=== PATIENT | male | born 1950 | race Caucasian/White ===

== ENCOUNTER → 2024-05-23 | Outpatient (CLI) | payer OTHER, SELFPAY ==
[2024-05-23 15:29] LABS: Basophils # (Auto) 0.1 Thou/mm3 (0.0-0.2); Basophils % (Auto) 1 % (0-2.5); Eosinophils # (Auto) 0.3 Thou/mm3 (0.0-0.5); Eosinophils % (Auto) 2 % (0-10); Hematocrit 47.1 % (41.0-53.0); Hemoglobin 15.7 g/dL (13.5-16.0); Immature Granulocytes % (Auto) 1 % (0-0); Immature Granulocytes Auto 0.07 Thou/mm3 (0.00-0.00); Lymphocytes # (Auto) 3.1 Thou/mm3 (1.0-4.8); Lymphocytes % (Auto) 24 % (10-50); Mean Corpuscular HGB Conc 33.3 g/dl (31.0-37.0); Mean Corpuscular Hemoglobin 30.3 pg (25.0-35.0); Mean Corpuscular Volume 91 fL (80-100); Monocytes # (Auto) 0.5 Thou/mm3 (0.0-0.8); Monocytes % (Auto) 4 % (0-12); Neutrophils # (Auto) 9.2 Thou/mm3 (1.8-7.7); Neutrophils % (Auto) 69 % (37-80); Nucleated Red Blood Cell % 0 /100 WBC (0); Platelet Count 373 Thou/mm3 (140-440); RDW Standard Deviation 47.8 fL (35.1-43.9); Red Blood Count 5.19 Miln/mm3 (4.50-5.90); White Blood Count 13.2 Thou/mm3 (3.8-10.6)
[2024-05-23 15:48] LABS: Glucose Estimated Average 114 mg/dL (80-131); Hemoglobin A1C 5.6 % Hgb (4.8-6.0)
[2024-05-23 15:54] LABS: Prostate Specific Antigen 2.89 ng/mL (0-4.00)
[2024-05-23 15:58] LABS: Alanine Aminotransferase 36 U/L (10-49); Albumin, Serum 4.5 gm/dL (3.4-4.8); Alkaline Phosphatase 115 U/L (46-116); Anion Gap 10 (7-16); Aspartate Amino Transferase 18 U/L (0-34); BUN/Creatinine Ratio 22 Ratio (12-20); Bilirubin,Total 0.5 mg/dL (0.3-1.2); Blood Urea Nitrogen 42 mg/dL (9-23); Calcium 9.5 mg/dL (8.3-10.6); Calcium (Corrected) 9.5 mg/dL (8.5-10.1); Cardiac Risk Estimate 4.3 RATIO (4.0-6.7); Chloride 102 mMol/L (98-107); Cholesterol 155 mg/dL (132-200); Creatinine (Component) 1.9 mg/dL (0.6-1.3); Globulin 2.3 gm/dL (2.3-3.5); Glucose 118 mg/dL (74-106); HDL Cholesterol 36 mg/dL (40-60); LDL Cholesterol,Calculated 79 mg/dL (0-130); Osmolality,Calculated 290 (275-295); Potassium 4.1 mMol/L (3.4-5.1); Sodium 140 mMol/L (136-145); Total Protein 6.8 gm/dL (5.7-8.2); Triglycerides 201 mg/dL (30-150); eGFR 37 See Note
== END | disposition home or self-care (01) ==
LOC: COPL 13:56
PROVIDERS: PCP Family Medicine; Referring Provider Family Medicine; Visit Provider Family Medicine
DX: Z00.00 Encounter for general adult medical examination without abnormal findings (principal); E11.65 Type 2 diabetes mellitus with hyperglycemia; E78.00 Pure hypercholesterolemia, unspecified; Z12.5 Encounter for screening for malignant neoplasm of prostate; Z13.1 Encounter for screening for diabetes mellitus
CPT/HCPCS: 36415; 80053; 80061; 81001; 83036; 84153; 85025; 87086

== ENCOUNTER → 2024-05-24 | Outpatient (CLI) | payer MEDICARE, SELFPAY ==
[2024-05-24 09:56] LABS: Collection Type, Urine Clean Catch
[2024-05-24 10:21] LABS: Bilirubin,Urine Negative (Negative); Blood,Urine Negative (Negative); Clarity,Urine Clear (Clear/Hazy); Color,Urine Lt-Yellow (Lt Yel-Yel); Culture Indicated,Urine Not Indicated; Glucose, Urine Negative (Negative); Ketones,Urine Negative (Negative); Leukocyte Esterase,Urine Negative (Negative); Nitrite,Urine Negative (Negative); Protein,Urine Trace (Neg - Trace); RBC,Urine 9 /hpf (0-3); Specific Gravity,Urine 1.023 (1.001-1.035); Squamous Epithelial Cell,Urine < 1 /hpf (0-5); Urobilinogen,Urine Negative mg/dL (0.0-1.0); WBC,Urine < 1 /hpf (0-5)
== END | disposition home or self-care (01) ==
LOC: SLDO 09:41
PROVIDERS: PCP Family Medicine; Referring Provider Family Medicine; Visit Provider Family Medicine
DX: Z00.00 Encounter for general adult medical examination without abnormal findings (principal); E11.65 Type 2 diabetes mellitus with hyperglycemia; E78.00 Pure hypercholesterolemia, unspecified; Z13.1 Encounter for screening for diabetes mellitus
CPT/HCPCS: 81001

== ENCOUNTER 2024-08-24 13:00 | Outpatient (RCR) | payer MEDICARE, SELFPAY ==
--- NOTE | 2024-08-17 13:10 | PTNOTE_ITS ---
PT OP Initial Eval Patient Information Outpatient Physical Therapy Treatment Date: 08/17/24 Visit Reasons: Post op left hip Medical Diagnosis: M16.12 Z51.89 Treatment Dx #1: L hip pain Treatment Dx #2: L hip weakness Start of Care: 08/17/24 Date of Onset: 07/18/24 Smoking Status Smoking Status: Light (< 1 pack/day) Cessation Counseling Provided: ADA was advised that quitting smoking is the single most important factor to protect the health of themselves and their family. Discussed the benefits of quitting smoking with patient. Encouraged patient to quit smoking and provided Cessation assistance materials and resources. Tobacco Use: Cigarette Years smoked: 30 Are you interested in quitting?: Yes Would you like additional Smoking Cessation Counseling?: No Initial Assessment Subjective: Pt is 73 yr old male s/p L hip replacement presents ambulating without assistive device. He says lifting the LE to the side is most difficult and ambulating more than about 10 mins is limited. PMH: cardiac stent, high cholesterol, HTN, 4 herniated disks in neck and lumbar OA Pt goal: walk further to play golf Objective: L hip ArOM: Strength: Flexion: 85 deg 3-/5 Abd: 35 deg with knee bent 3-/5 SLR: 55 deg Gait: unsymmetrical, antalgic Assessment: Pt presentation consistent with referring Dx of L VALE. Pt requires skilled therapy to meet goals and has good rehab potential. Eval followed by HEP printout. Short Term and Interventional Technologist Goals 1. Ind with HEP 2. Improved ambulatory distance to community distances with symmetrical pattern 3. Pt will get up from a chair without L hip pain x10 4. Pt will tolerate playing golf x9 holes with <=3/10 L hip pain 5. Improved hip abduction and flexion strength to 4/5 Treatment Plan ?1. Manual therapy ? 2. Therex ? 3. Modalities as indicated, moist heat, ice, estim Frequency and Duration: 2x a week for 12 sessions plus the eval Certification Dates: 08/17/24 to 11/15/24 Procedure Charges OP PT Eval Mod Complex 30 minutes: Yes
--- NOTE | 2024-08-18 14:22 | PT.ODAYNRPT ---
PT Outpatient Daily Note OP Daily Note Outpatient Physical Therapy Treatment Date: 08/18/24 Visit Reasons: Post op left hip Subjective: Same as time of evaluation Objective: See F/S for therex Assessment: Pt fatigues after a few minutes of therex in standing and sits to rest. Plan: Continue per POC Length of Time (minutes) of Treatment: 30 Minutes Procedure Charges Therapeutic Exercise 30 minutes: Yes
--- NOTE | 2024-08-24 13:35 | PTNOTE_ITS ---
PT Outpatient Daily Note OP Daily Note Outpatient Physical Therapy Treatment Date: 08/24/24 Visit Reasons: Post op left hip Subjective: No new complaints or concerns. Objective: Please see flow sheet for ther ex list. Assessment: Pt demonstrates lateral trunk flexion during standing hip abduction exercise, corrects post verbal cues and demonstration to maintain trunk upright. Plan: Continue with pOC. Length of Time (minutes) of Treatment: 30 Minutes INSTRUMENT AND CONTROL TECHNICIAN Service Modifier Method I: Divide the number of min of care provided by the INSTRUMENT AND CONTROL TECHNICIAN/MYKE by the total min of care provided then multiply by 100. If greater than 11 percent modifier is required. Method II: Divide the total time of care provided to patient by 10 (round to the nearest whole number) and add 1 min. to set the minimum time requirement. If treatment total was 60 min., then 10% of 6 min PT CQ modifier applied: CQ Modifier applied Procedure Charges Therapeutic Exercise 30 minutes: Yes
== END 2024-08-24 23:59 | disposition home or self-care (01) ==
LOC: CPTX 13:00
DX: M25.552 Pain in left hip (principal); R53.1 Weakness; M16.12 Unilateral primary osteoarthritis, left hip; Z96.642 Presence of left artificial hip joint; Z71.6 Tobacco abuse counseling; F17.210 Nicotine dependence, cigarettes, uncomplicated; I10 Essential (primary) hypertension
CPT/HCPCS: 97110; 97162

== ENCOUNTER 2024-09-22 11:00 | Outpatient (RCR) | payer MEDICARE, SELFPAY ==
--- NOTE | 2024-09-01 11:59 | PT.ODAYNRPT ---
PT Outpatient Daily Note OP Daily Note Outpatient Physical Therapy Treatment Date: 09/01/24 Visit Reasons: left hip surgery Subjective: Overall better Objective: See F/S for therex Assessment: Improved endurance with therex but pain in the back today with hip abduction therex Plan: Continue per POC Length of Time (minutes) of Treatment: 30 Minutes Procedure Charges Therapeutic Exercise 30 minutes: Yes
--- NOTE | 2024-09-06 13:12 | PTNOTE_ITS ---
PT Outpatient Daily Note OP Daily Note Outpatient Physical Therapy Treatment Date: 09/06/24 Visit Reasons: left hip surgery Subjective: Pt reports soreness says he has been busy completing tasks around the house. Objective: Please see flow sheet for ther ex list. Assessment: Interventions completed with muscle fatigue no pain to report. Plan: Continue with POC. Length of Time (minutes) of Treatment: 30 Minutes SOFTWARE LICENSING ANALYST Service Modifier Method I: Divide the number of min of care provided by the SOFTWARE LICENSING ANALYST/CONTINUOUS TOWEL ROLLER by the total min of care provided then multiply by 100. If greater than 11 percent modifier is required. Method II: Divide the total time of care provided to patient by 10 (round to the nearest whole number) and add 1 min. to set the minimum time requirement. If treatment total was 60 min., then 10% of 6 min PT CQ modifier applied: CQ Modifier applied Procedure Charges Therapeutic Exercise 30 minutes: Yes
--- NOTE | 2024-09-08 13:20 | PT.ODAYNRPT ---
PT Outpatient Daily Note OP Daily Note Outpatient Physical Therapy Treatment Date: 09/08/24 Visit Reasons: left hip surgery Subjective: Pt reports hip is really sore today. Objective: Please see flow sheet for ther ex list. Assessment: Regressed interventions to accommodate for reported pain. Plan: Continue with POC. Length of Time (minutes) of Treatment: 30 Minutes Procedure Charges Therapeutic Exercise 30 minutes: Yes
--- NOTE | 2024-09-14 13:38 | PTNOTE_ITS ---
PT Outpatient Daily Note OP Daily Note Outpatient Physical Therapy Treatment Date: 09/14/24 Visit Reasons: left hip surgery Subjective: Pt reports hip is painful and sore today. Objective: Please see flow sheet for ther ex list. Assessment: Pt presents in clinic with c/o increase pain, regressed interventions to accommodate pain. Plan: Continue with pOC. Length of Time (minutes) of Treatment: 30 Minutes WINDOWS APPLICATION PACKAGER Service Modifier Method I: Divide the number of min of care provided by the WINDOWS APPLICATION PACKAGER/TERMINAL OPERATIONS MANAGER by the total min of care provided then multiply by 100. If greater than 11 percent modifier is required. Method II: Divide the total time of care provided to patient by 10 (round to the nearest whole number) and add 1 min. to set the minimum time requirement. If treatment total was 60 min., then 10% of 6 min PT CQ modifier applied: CQ Modifier applied Procedure Charges Therapeutic Exercise 30 minutes: Yes
--- NOTE | 2024-09-20 13:07 | PT.ODAYNRPT ---
PT Outpatient Daily Note OP Daily Note Outpatient Physical Therapy Treatment Date: 09/20/24 Visit Reasons: left hip surgery Subjective: Pt reports hip continues ot be pain ful but not as intense. As per pt he walks a few blocks most days. Objective: Please see flow sheet for ther ex list. Assessment: Slow progress with interventions progression due to pt pain response. Plan: Continue with POC. Length of Time (minutes) of Treatment: 30 Minutes Procedure Charges Therapeutic Exercise 30 minutes: Yes
--- NOTE | 2024-09-22 13:08 | PT.ODAYNRPT ---
PT Outpatient Daily Note OP Daily Note Outpatient Physical Therapy Treatment Date: 09/22/24 Visit Reasons: left hip surgery Subjective: Pt reports hip continues to be stiff and weak, more so feels it when getting up in the morning and initial standing from chair. Objective: Please see flow sheet for ther ex list. Assessment: Progression of interventions completed with minimal pain and mucsle fatigue. Plan: Continue with pOC, progress per post op protocol. Length of Time (minutes) of Treatment: 30 Minutes Procedure Charges Therapeutic Exercise 30 minutes: Yes
== END 2024-09-24 23:59 | disposition home or self-care (01) ==
LOC: CPTX 11:00
DX: M25.552 Pain in left hip (principal); Z96.642 Presence of left artificial hip joint; M16.12 Unilateral primary osteoarthritis, left hip; I10 Essential (primary) hypertension
CPT/HCPCS: 97110

== ENCOUNTER 2024-10-05 15:00 | Outpatient (RCR) | payer MEDICARE, SELFPAY ==
--- NOTE | 2024-09-29 17:55 | PT.ODAYNRPT ---
PT Outpatient Daily Note OP Daily Note Outpatient Physical Therapy Treatment Date: 09/29/24 Visit Reasons: Left hip surgery Subjective: Overall better Objective: See F/S for therex Assessment: Improved endurance with therex but pain in the back today with hip abduction therex Plan: Continue per POC Length of Time (minutes) of Treatment: 30 Minutes Procedure Charges Therapeutic Exercise 30 minutes: Yes
--- NOTE | 2024-10-05 15:28 | PT.ODAYNRPT ---
PT Outpatient Daily Note OP Daily Note Outpatient Physical Therapy Treatment Date: 10/05/24 Visit Reasons: Left hip surgery Subjective: Pt reports L hip is feeling about the same, continues to have pain and soreness. Pt discouraged does not feel he is progressing like he would like. Pt shared that he has a follow up with surgeon on the 25t. Objective: Please see flow sheet for ther ex list Assessment: Slow progress due to pt pain response. Plan: Continue with POC. Length of Time (minutes) of Treatment: 30 Minutes Procedure Charges Therapeutic Exercise 30 minutes: Yes
== END 2024-10-24 23:59 | disposition home or self-care (01) ==
LOC: CPTX 15:00
DX: M25.552 Pain in left hip (principal); R53.1 Weakness; M16.12 Unilateral primary osteoarthritis, left hip; Z96.642 Presence of left artificial hip joint; I10 Essential (primary) hypertension
CPT/HCPCS: 97110

== ENCOUNTER 2024-10-25 13:18 | Outpatient (RCR) | payer MEDICARE, SELFPAY ==
--- NOTE | 2024-10-25 14:34 | PT.ODAYNRPT ---
PT Outpatient Daily Note OP Daily Note Outpatient Physical Therapy Treatment Date: 10/25/24 Visit Reasons: hip pain Subjective: pt reports hip is doing better but has been struggling to get around due to R hip and back pain. Objective: Please see flow sheet for ther ex list. Assessment: Progressing interventions per post op protocol. Plan: Continue with pOC. Length of Time (minutes) of Treatment: 30 Minutes Procedure Charges Therapeutic Exercise 30 minutes: Yes
== END 2024-11-24 23:59 | disposition home or self-care (01) ==
LOC: CPTX 13:18
PROVIDERS: PCP Physician Assistant; Referring Provider Physician Assistant; Visit Provider Physician Assistant
DX: M25.552 Pain in left hip (principal); R53.1 Weakness; M16.12 Unilateral primary osteoarthritis, left hip; Z96.642 Presence of left artificial hip joint; I10 Essential (primary) hypertension
CPT/HCPCS: 97110

== ENCOUNTER 2024-12-15 06:45 | Day surgery (SDC) | payer OTHER, SELFPAY ==
[2024-12-13 14:24] VITALS: BMI 24.2
--- NOTE | 2024-12-14 07:00 | EKG_ITS ---
[facility] Test Date: 2024-12-14 Pat Name: ADA STARK Department: Room: - Gender: Male Lens Mounter: RAQUEL : [id number] Requested By: Radames Menon Order Number: [id number] Reading MD: Radames Menon Measurements Intervals [place] Rate: 77 P: 55 SD: 163 QRS: -56 QRSD: 92 T: 172 QT: 386 QTc: 437 Interpretive Statements SINUS RHYTHM WITH SINUS ARRHYTHMIA POSSIBLE LEFT ATRIAL ENLARGEMENT [-0.1mV P WAVE IN V1/V2] INCOMPLETE RIGHT BUNDLE BRANCH BLOCK [90+ ms QRS DURATION, TERMINAL R IN V1/V2, 40+ ms S IN I/aVL/V4/V5/V6] LEFT ANTERIOR FASCICULAR BLOCK [QRS AXIS <= -45, QR IN I, RS IN II] POSSIBLE ANTERIOR MYOCARDIAL INFARCTION , OF INDETERMINATE AGE [30 ms Q WAVE IN V3/V4, OR R < 0.2 mV IN V4] MODERATE T-WAVE ABNORMALITY, CONSIDER LATERAL ISCHEMIA [-0.1+ mV T WAVE IN I/aVL/V5/V6] Compared to ECG 06/21/2022 15:16:32 Incomplete right bundle-branch block now present T-wave abnormality now present Possible ischemia now present Myocardial infarct finding still present /store/S0/[id number].pdf
[2024-12-14 16:33] LABS: Basophils # (Auto) 0.1 Thou/mm3 (0.0-0.2); Basophils % (Auto) 1 % (0-2.5); Eosinophils # (Auto) 0.3 Thou/mm3 (0.0-0.5); Eosinophils % (Auto) 3 % (0-10); Hematocrit 46.0 % (41.0-53.0); Hemoglobin 15.2 g/dL (13.5-16.0); Immature Granulocytes Auto 0.03 Thou/mm3 (0.00-0.00); Lymphocytes # (Auto) 2.4 Thou/mm3 (1.0-4.8); Lymphocytes % (Auto) 25 % (10-50); Mean Corpuscular HGB Conc 33.0 g/dl (31.0-37.0); Mean Corpuscular Hemoglobin 30.2 pg (25.0-35.0); Mean Corpuscular Volume 91 fL (80-100); Monocytes # (Auto) 0.5 Thou/mm3 (0.0-0.8); Monocytes % (Auto) 6 % (0-12); Neutrophils # (Auto) 6.3 Thou/mm3 (1.8-7.7); Neutrophils % (Auto) 66 % (37-80); Nucleated Red Blood Cell # 0.00 Thou/mm3 (0.00-0.00); Nucleated Red Blood Cell % 0 /100 WBC (0); Platelet Count 229 Thou/mm3 (140-440); RDW Standard Deviation 48.6 fL (35.1-43.9); Red Blood Count 5.04 Miln/mm3 (4.50-5.90); White Blood Count 9.7 Thou/mm3 (3.8-10.6)
[2024-12-14 16:51] LABS: Anion Gap 7 (7-16); BUN/Creatinine Ratio 19 Ratio (12-20); Blood Urea Nitrogen 43 mg/dL (9-23); Calcium 9.8 mg/dL (8.3-10.6); Carbon Dioxide 23.0 mMol/L (20.0-31.0); Chloride 112 mMol/L (98-107); Creatinine (Component) 2.3 mg/dL (0.6-1.3); Estimated Creatinine Clearance 25.4 mL/min (>60); Glucose 102 mg/dL (74-106); Osmolality,Calculated 293 (275-295); Potassium 4.9 mMol/L (3.4-5.1); Sodium 142 mMol/L (136-145); eGFR 29 See Note
[2024-12-14 17:00] LABS: INR 0.9 (0.9-1.3); Partial Thromboplastin Time 24.7 Seconds (22.0-36.0); Prothrombin Time 10.3 Seconds (9.0-12.2)
[2024-12-15] VITALS (15 sets, daily range): BP systolic 97–142; BP diastolic 62–96; PULSE 56–75; RESP 14–20; TEMP 36.2–36.4; O2SAT 93–98
[2024-12-15] MEDS: HYDROcodone/APAP 5/325 TABLET 1 TAB PO (11:36)
--- NOTE | 2024-12-15 16:25 | PD.CARDCATH ---
Cardiac Cath Procedure Procedure Name Date of procedure: 12/15/24 MANUFACTURING PLANT MANAGER: Radames Menon MD PROCEDURE PERFORMED: 1. Successful PCI of the distal RCA with 3.0 x 15 mm Zack STEVE stent with excellent result stent ARIC-3 flow and no complications. CPT 37958 2. Left heart and right heart cardiac catheterization including right, left coronary angiograms and left ventriculogram - CPT 63213 3. Ultrasound-guided access of the right radial artery and right femoral vein - CPT 43756 4. Conscious sedation for 30 minutes - CPT 81902 Procedure Narrative HISTORY AND INDICATIONS: A 73-year-old male with a past medical history of CAD status post stent in 2019 as per patient but unknown location, severe systolic CHF with an EF of around 25%, peripheral arterial disease status post percutaneous transluminal angioplasty, history of abdominal aortic aneurysm measuring around 3 cm, hyperlipidemia, osteoarthritis of the spine with radiculopathy, spinal stenosis, current smoker with [id number] of smoking history, mild COPD, generalized osteoarthritis, benign mass of the adrenal gland was brought to the cardiac Long Term Care Administrator for further evaluation open abnormal stress test during his ischemic evaluation. Stress test revealed decreased uptake in the inferior segment with stress improved with rest indicating ischemia and was scheduled for the cardiac catheterization for further evaluation. Given the severe systolic congestive heart failure patient was recommended both right and left heart cardiac catheterization. Discussed with patient risks, benefits and alternatives of performing left with coronary angiogram including the risks of bleeding, heart rate, stroke and with the procedure. Patient understands the risks and is willing to undergo the procedure. Consent provided for the same. H&P updated and consent was signed prior to the procedure DESCRIPTION OF PROCEDURE: The patient was brought to the cardiac catheterization lab and all asceptic precautions were followed. Patient was given 1 Mg of Versed and 50 mcg of fentanyl for moderate conscious sedation. 2 mL of lidocaine was given in the right wrist. The right radial artery was accessed via the ultrasound guidance as well as micropuncture technique. A 6 [place] glide sheath was introduced. Patient already had right antecubital vein access placed. Right antecubital vein access was cleaned appropriately and all aseptic precautions was followed and exchanged into a micropuncture catheter with the help of a micropuncture wire and then introduced and a 7 [place] sheath into the antecubital vein access with the help of a J-wire. A 7 [place] catheter was used to direct catheter into the right atrium with inflated balloon. A 10 ml of lidocaine was then injected in the right femoral area and right femoral vein vein was accessed with ultrasound guidance and micropuncture technique. A 7 persian femoral sheath was used. A 7 [place]ian [place] catheter was used with a [place] wire to direct into the right atrium with inflated balloon. Serial measurements of right atrium, right ventricle, pulmonary artery and pulmonary capillary wedge were taken severely with normal respiration as well as at end expiration as noted below. We then used a 6 [place] TIG 4 catheter to perform the left and right coronary angiogram as well as a left ventriculogram which showed the following findings. LHC findings: 1. Left ventricular ejection fraction was severely reduced at 25 to 30% without any regional wall motion abnormalities. LVEDP was normal at 12 mmHg. There was no significant transvalvular aortic gradient. 2. Right dominant circulation 3. Left main artery is a large-caliber vessel without any significant stenosis. 4. LAD is a large sized artery with moderate 60% stenosis in the mid LAD after the first septal. Small diagonals noted with no significant disease. Distal LAD also has mild disease. 5. LCx is a large sized artery with medium to large OM1 and small vessel LCx with no significant obstruction. 6. RCA is a large sized artery with moderate 50% stenosis of the proximal RCA and, mild 20 to 30% stenosis in the mid RCA and severe 80% stenosis in the distal RCA prior to the bifurcation of medium sized RPL and RPDA RHC findings: Mean right atrial pressure was 6 mmHg. Right atrial pressure was 53/16 mmHg. Pulmonary artery pressure was 25/9 mmHg and a mean of 14 mmHg Pulmonary capillary wedge pressure was 11 over 9 mmHg and a mean of 8 mmHg. PA saturations were 62.9% and AO saturations were 90.3% TPG was 6 mmHg Pulmonary artery PA saturation was 63.5%.? Arterial saturation was 95% on room air. Cardiac output was 4.0 L/min and cardiac index was normal at 1.9 L/min/m? Intervention: Patient did have a positive stress test with inferior ischemia and hence decision was made to perform the PCI for the severe distal RCA disease with 80% stenosis. Patient was already on aspirin and Plavix and was given 300 milligrams of Plavix orally along with aspirin 162 mg orally. Patient was given weight-based heparin for a total of on 6000 units and ACT was greater than 250 throughout the entire procedure. Patient was already given Versed and fentanyl for sedation. We exchanged the catheter to a JR4 guide catheter and the RCA was engaged. A run-through wire was used to cross the lesion in the distal RCA. We then used a 3.0 x 15 mm Medtronic [place] STEVE stent and successfully deployed at 12 ana for a total of 25 seconds and again postdilated with the same stent balloon at 14 and 15 ana for another 30 seconds. Final angiographic pictures were taken which showed excellent results with ARIC-3 flow and no complications. All interventional equipment was removed. A radial band was used to achieve the hemostasis of the right radial artery access and manual hemostasis for the right antecubital vein. Patient will be monitored in the cardiac cardiac cath lab radiology technologist for the next 2 to 3 hours and will be sent to the telemetry floor. Patient recommended to follow-up with me in the office within 7 days after discharge. Complications: None Specimens: None Blood loss: Estimated 5 ml Summary/findings: 1. Abnormal stress test: LHC showed severe 80% stenosis of the distal RCA and successful PCI performed of distal RCA with 3.0 x 15 mm Zack STEVE stent. Rest of the coronaries showed moderate disease of the mid LAD with 60% stenosis as well as 50% stenosis of the proximal RCA and mild disease in the mid RCA and the distal LAD. Rest of the coronaries including LCx and other branches without any significant disease. 2. LVEF was severely low at 25-30%. LVEDP was normal at 12 mmHg. No significant lateral or aortic gradient 3. Successful PCI performed of the distal RCA with 3.0 x 15 mm Zack STEVE stent with excellent results and no complications. 4. Normal heart pressures with a mean RA of 6 mmHg, mean PA of 40 mmHg and a mean PCWP at 8 mmHg. Recommendations: 1. Recommend aggressive medical treatment with aspirin 81 mg once daily for life along with Plavix 75 mg once daily at least for 1 year and beta-edwardo metoprolol XL along with Entresto and Lasix. 2. Continue aggressive medical treatment for the moderate residual CAD for now along with aggressive risk factor modification 3. Patient recommended not to lift more than 5 lbs for the next 7-10 days and follow up with me in my office in 7 days. Radames Menon MD Interventional Cardiology.
[2024-12-16 15:54] LABS: ACT (CATH LAB ONLY) 384.0 Seconds (89-169); O2 Saturation (Cath Lab) 90 % (91-98); Puncture Site Aortic
[2024-12-16 15:55] LABS: O2 Saturation (Cath Lab) 61 % (91-98); Puncture Site Pulmonary Artery
== END 2024-12-15 13:35 | disposition home or self-care (01) ==
PROVIDERS: PCP Family Medicine; Referring Provider Internal Medicine Cardiovascular Disease; Visit Provider Internal Medicine Cardiovascular Disease
PROC: (CPT 93460; principal; 2024-12-15 08:30)
DX: I25.10 Atherosclerotic heart disease of native coronary artery without angina pectoris (principal); R94.39 Abnormal result of other cardiovascular function study; I50.20 Unspecified systolic (congestive) heart failure; I73.9 Peripheral vascular disease, unspecified; Z98.62 Peripheral vascular angioplasty status; E78.5 Hyperlipidemia, unspecified; I71.40 Abdominal aortic aneurysm, without rupture, unspecified; F17.200 Nicotine dependence, unspecified, uncomplicated; J44.9 Chronic obstructive pulmonary disease, unspecified; M48.02 Spinal stenosis, cervical region; M15.9 Polyosteoarthritis, unspecified; E27.8 Other specified disorders of adrenal gland; Z01.810 Encounter for preprocedural cardiovascular examination; I45.2 Bifascicular block; R94.31 Abnormal electrocardiogram [ECG] [EKG]
CPT/HCPCS: 93460; C9600; 36415; 80048; 82810; 85025; 85347; 85610; 85730; 93005; 99152; 99153; A4649; C1769; C1874; C1887; C1894; J0168; J0461; J1643; J2250; J2312; J2371; J3010; J3490; Q9967; A9270